=== PATIENT | female | born 1990 | race Hispanic/Latino ===

== ENCOUNTER 2017-10-18 17:04 | Emergency (ER) | payer BC, OTHER ==
[2017-10-18 17:04] VITALS: BMI 23.6
--- NOTE | 2017-10-18 18:54 | C.PDOC ---
History Of Present Illness 27 year old female presents to the ED for evaluation of fever, sore throat and congestion which began last night. Patient notes her throat pain radiates to her ears. She denies chest pain, sob, headache, neck pain, nausea, vomiting and abdominal pain. Time Seen by Provider: 10/18/17 17:45 Chief Complaint (Nursing): Flu-like Symptoms History Per: Patient History/Exam Limitations: no limitations Onset/Duration Of Symptoms: Hrs Current Symptoms Are (Timing): Still Present Associated Symptoms: Fever, Sore Throat, Nasal Congestion. denies: Nausea, Vomiting Additional History Per: Patient Past Medical History Reviewed: Historical Data, Nursing Documentation, Vital Signs Vital Signs: Last Vital Signs Temp 98 F 10/18/17 19:25 Pulse 87 10/18/17 19:25 Resp 18 10/18/17 19:25 BP 119/79 10/18/17 19:25 Pulse Ox 98 10/23/17 17:41 - Medical History PMH: Asthma Denies: Depression Surgical History: No Surg Hx - [facility] Procedures DRESSING OF WOUND NEC (05/04/15) IMMOBILIZ/WOUND ATTN NEC (08/11/14) INJECT/INFUSE NEC (06/15/13) OTHER SKIN & SUBQ I D (04/30/15) Family History: States: Unknown Family Hx - Social History Hx Tobacco Use: No Hx Alcohol Use: Yes Hx Substance Use: No - Immunization History Hx Tetanus Toxoid Vaccination: No Hx Influenza Vaccination: No Hx Pneumococcal Vaccination: No Review Of Systems Constitutional: Positive for: Fever ENT: Positive for: Nose Congestion, Throat Pain Gastrointestinal: Negative for: Nausea, Vomiting Musculoskeletal: Negative for: Neck Pain Physical Exam - Physical Exam Appears: Non-toxic, No Acute Distress Skin: Normal Color, Warm, Dry Head: Atraumatic, Normacephalic Eye(s): bilateral: Normal Inspection, EOMI Ear(s): Bilateral: Normal Nose: Other (congestion ) Oral Mucosa: Moist Throat: Other (tonsillar erythema and enlargement ) Neck: Normal, Normal ROM, Supple Chest: Symmetrical, No Deformity, No Tenderness Cardiovascular: Rhythm Regular Respiratory: Normal Breath Sounds, No Rales, No Rhonchi, No Wheezing Extremity: Normal ROM, Capillary Refill (less than 2 seconds ) Neurological/Psych: Oriented x3, Normal Speech, Normal Cognition ED Course And Treatment O2 Sat by Pulse Oximetry: 98 (on RA) Pulse Ox Interpretation: Normal Progress Note: Throat culture obtained. Rapid Strep test ordered and resulted negative. Decadron IM and Motrin PO administered. Case discussed with Dr. Pena, who evaluated patient at bedside and agrees with plan and treatment. On re-evaluation, patient is resting comfortably, tolerating PO, and is afebrile at this time. Patient will be discharged home, and instructed to follow up with his/her physician in 2-5 days without fail. Patient was instructed to return for any worsening symptoms, persistent fever, neck pain, rash, abdominal pain, or vomiting. Disposition - Disposition Disposition: HOME/ ROUTINE Disposition Time: 18:53 Condition: STABLE Additional Instructions: Follow up with your primary medical doctor or clinic in 2-5 days for further evaluation. Take medications as prescribed. Return to the emergency department at any time if symptoms persist or worsen. 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 - Scribe Statement The provider has reviewed the documentation as recorded by the Scribe (Renetta Lr) All medical record entries made by the Scribe were at my direction and personally dictated by me. I have reviewed the chart and agree that the record accurately reflects my personal performance of the history, physical exam, medical decision making, and the department course for this patient. I have also personally directed, reviewed, and agree with the discharge instructions and disposition.
[2017-10-18] MEDS ORDERED: Dexamethasone 4 mg/1 ml IM STA (19:08)
[2017-10-18 19:25] VITALS: BP 119/79; PULSE 87; RESP 18; TEMP 98
[2017-10-23 17:23] VITALS: O2SAT 98
== END 2017-10-18 20:20 | disposition home or self-care (01) ==
LOC: C.ER 17:04
DX: J11.1 Influenza due to unidentified influenza virus with other respiratory manifestations (principal)
CPT/HCPCS: 87070; 87430; 96372; 99283; J1100

== ENCOUNTER 2018-06-11 12:26 | Emergency (ER) | payer OTHER ==
[2018-06-11 12:26] VITALS: BMI 23.6
[2018-06-11] MEDS ORDERED: Dexamethasone 4 mg/1 ml IM STA (13:07)
[2018-06-11] MEDS ORDERED: Albuterol 0.083% Inhal Sol (2.5 mg/3 mL) UD IH STA (13:09)
[2018-06-11] MEDS ORDERED: Albuterol 0.083% Inhal Sol (2.5 mg/3 mL) UD ONE (13:20)
[2018-06-11 13:35] VITALS: BP 106/68; PULSE 65; RESP 16; TEMP 98.2; O2SAT 99
--- NOTE | 2018-06-11 13:38 | C.PDOC ---
History Of Present Illness 27 year old female with a history of asthma presents to the ED for evaluation of non-productive cough and nasal congestion for 1 week. Patient reports she initially had body aches that have since resolved. Denies shortness of breath, ear pain, sore throat, fever, nausea, vomiting, and any other associated symptoms. Time Seen by Provider: 06/11/18 12:40 Chief Complaint (Nursing): Flu-like Symptoms History Per: Patient History/Exam Limitations: no limitations Onset/Duration Of Symptoms: Days Current Symptoms Are (Timing): Still Present Past Medical History Reviewed: Historical Data, Nursing Documentation, Vital Signs Vital Signs: Last Vital Signs Temp 98.2 F 06/11/18 13:32 Pulse 65 06/11/18 13:32 Resp 16 06/11/18 13:32 BP 106/68 06/11/18 13:32 Pulse Ox 99 06/11/18 13:32 - Medical History PMH: Asthma Denies: Depression - [facility] Procedures DRESSING OF WOUND NEC (05/04/15) IMMOBILIZ/WOUND ATTN NEC (08/11/14) INJECT/INFUSE NEC (06/15/13) OTHER SKIN & SUBQ I D (04/30/15) Family History: States: Unknown Family Hx - Social History Hx Tobacco Use: No Hx Alcohol Use: Yes Hx Substance Use: No - Immunization History Hx Tetanus Toxoid Vaccination: No Hx Influenza Vaccination: No Hx Pneumococcal Vaccination: No Review Of Systems Constitutional: Negative for: Fever, Chills ENT: Positive for: Nose Congestion. Negative for: Ear Pain Respiratory: Positive for: Cough (non-productive.). Negative for: Shortness of Breath Gastrointestinal: Negative for: Nausea, Vomiting Physical Exam - Physical Exam Appears: Other (comfortable. ) Skin: Normal Color, Warm, Dry Head: Atraumatic, Normacephalic Throat: Normal, No Erythema Cardiovascular: Rhythm Regular, No Murmur Respiratory: Normal Breath Sounds, No Rales, No Rhonchi, No Wheezing, Other (occasional cough.) Neurological/Psych: Oriented x3, Normal Speech, Other (Speaking full sentences. ) Gait: Steady ED Course And Treatment O2 Sat by Pulse Oximetry: 99 (RA) Pulse Ox Interpretation: Normal Progress Note: Given Albuterol, Acetaminophen, and Decadron IM. Reassessment: Patient felt better, stable for discharge home. Prescribed Albuterol and Benzonatate. Disposition Counseled Patient/Family Regarding: Diagnosis, Need For Followup, Rx Given - Disposition Referrals: [facility] [Outside] Disposition: HOME/ ROUTINE Disposition Time: 13:45 Condition: STABLE Additional Instructions: FOLLOW UP WITH YOUR DOCTOR/CLINIC IN 1-2 DAYS USE MEDICATIONS NEEDED DRINK PLENTY OF FLUIDS RETURN TO ER IF SYMPTOMS WORSEN Prescriptions: Albuterol HFA [Ventolin HFA 90 mcg/actuation (8 g)] 0.09 mg IH Q4 PRN #1 puff PRN Reason: Wheezing Benzonatate [Tessalon Perles] 100 mg PO BID PRN #15 sgl PRN Reason: Cough Instructions: Acute Bronchitis, Adult (DC), Viral Upper Respiratory Infection, Adult (DC) Forms: [employer] (Ukrainian), Work Excuse Print Language: TAJIK - Clinical Impression Clinical Impression: Viral upper respiratory infection, Bronchospasm with bronchitis, acute - Scribe Statement The provider has reviewed the documentation as recorded by the Scribe (Peri Brumfield) Provider Attestation: All medical record entries made by the Scribe were at my direction and pe rsonally dictated by me. I have reviewed the chart and agree that the record accurately reflects my personal performance of the history, physical exam, medical decision making, and the department course for this patient. I have also personally directed, reviewed, and agree with the discharge instructions and disposition.
[2018-06-11] MEDS ORDERED: Acetaminophen 160 mg/5 ml UD PO ONE (13:48)
[2018-06-11] MEDS ORDERED: Acetaminophen 650mg/20.3ml solution UD ONE (13:59)
== END 2018-06-11 13:59 | disposition home or self-care (01) ==
LOC: C.ER 12:26
DX: J06.9 Acute upper respiratory infection, unspecified (principal); J20.9 Acute bronchitis, unspecified
CPT/HCPCS: 96372; 99284; J1100